=== PATIENT | female | born 1995 | race Caucasian/White ===

== ENCOUNTER 2019-08-30 10:37 | Emergency (ER) | payer BC, MEDICAID, SELFPAY ==
--- NOTE | ~2019-08-30 | XR_ITS ---
EXAMINATION: XR chest 2V DATE: 08/30/2019 11:09 INDICATION: Cough. Chest congestion. Chest tightness. TECHNIQUE: Frontal and lateral views of the chest were obtained. COMPARISON: Chest 2 views 04/25/2015 FINDINGS: The chest demonstrates clear lungs without pneumonia, pleural effusion, or pneumothorax. Th e heart size is normal. IMPRESSION: 1. No acute cardiopulmonary disease. Reviewed, dictated and finalized at location A.
[2019-08-30 10:45] VITALS: BP 118/69; PULSE 85; RESP 18; TEMP 36.7; O2SAT 99
--- NOTE | 2019-08-30 10:56 | ED.GENADULT ---
HPI - General Adult General Chief complaint: Upper Respiratory Infection Stated complaint: chest congestion/sinus congestion/headache Time Seen by Provider: 08/30/19 10:56 Source: patient and RN notes reviewed Mode of arrival: ambulatory Limitations: no limitations History of Present Illness HPI narrative: 24-year-old female presents with complains of bilateral otalgia, dry cough with intermittent headaches (not the worst of her life, none now) for the past 6-7 days. Sumatriptan, Ibuprofen (last 1 day ago) and Tylenol (last 2 days ago) with some relief. Symptoms increased over the past 3 days with chest wall tenderness with coughing. Dry cough worse when lying down. History of Asthma and Bronchitis. Denies chest congestion. Rhinorrhea and nasal congestion. Denies sore throat. No high fevers, drooling, neck or throat swelling. No cardiac chest pain, wheezing, or shortness of breath. No exacerbation factors. Denies diarrhea, nausea, vomiting, and abdominal pain. Tolerating liquids well. Laquita and mother denies being , LMP 08/22/19. Both denies weakness, fatigue, myalgia. Denies recent traveling. Denies concern for COVID-19 or exposures been home since [id number] order except for essential household (groceries delivered to home) needs and return home. Some parts of this dictation were generated by voice recognition software and may contain typographical and/or grammatical inaccuracies. Related Data Home Medications Medication Instructions Recorded Confirmed ethosuximide 250 mg PO BID 04/29/19 08/30/19 methsuximide [Celontin] 300 mg PO TID 04/29/19 08/30/19 prazosin 1 mg PO HS 04/29/19 08/30/19 sertraline 50 mg PO DAILY 04/29/19 08/30/19 sumatriptan succinate 50 mg PO USEASDIRECTD PRN 04/29/19 08/30/19 albuterol sulfate 2 puff INHALATION QID PRN 08/30/19 08/30/19 ergocalciferol (vitamin D2) 1,250 mcg PO WEEKLY 08/30/19 08/30/19 [Vitamin D2] folic acid 0.4 mg PO DAILY 08/30/19 08/30/19 Allergies Allergy/AdvReac Type Severity Reaction Status Date / Time No Known Allergies Allergy Unknown Verified 08/30/19 10:57 Review of Systems Review of Systems: Narrative: CONSTITUTIONAL: Denies fever, chills, sweats. EYES: Denies visual changes, redness, discharge. ENT: Complains of otalgia rhinorrhea, congestion, Denies sore throat. CARDIOVASCULAR: Denies chest pain, palpitations, edema. RESPIRATORY: Denies dyspnea, wheezing. Complains of dry cough. GASTROINTESTINAL: Denies abdominal pain, nausea, vomiting, diarrhea. GENITOURINARY: Denies dysuria, hematuria, abnormal discharge. SKIN: Denies rash or itching. MUSCULOSKELETAL: Denies acute back pain, joint pain, or myalgia. Complains of intermittent diffused chest wall pain. NEUROLOGIC: Denies numbness or focal weakness. Complains of intermittent ORTEZ. PSYCHIATRIC: Denies anxiety or depression. All systems reviewed & are unremarkable except as noted in HPI and below. [facility] Past Medical History Medical History (Updated 08/30/19 @ 11:48 by GALEN Manzanares) Anxiety Asthma Depression Hx of migraines Learning disabilities Psoriasis Right arm fracture Seizures Surgical History Surgical History (Updated 08/30/19 @ 11:16 by GALEN Manzanares) History of facial surgery plastic surgery to chin Family History Family History (Updated 08/30/19 @ 11:18 by GALEN Manzanares) Father Seizures Mother Alive and well Sibling Seizures Asthma Grandparent Asthma Social History Social History (Updated 08/30/19 @ 11:18 by GALEN Manzanares) Smoking status: Never smoker Second hand tobacco smoke exposure: No Alcohol intake: never Substance use: never Living arrangements: with family Occupation/Education: unemployed Additional occupation/education comments: Disable Gender identity (if verbalized by the patient): Female Comments At time of signature, agree with nurse past medical, surgical, social, and family
== END 2019-08-30 11:35 | disposition home or self-care (01) ==
PROVIDERS: Emergency Provider Nurse Practitioner Family; PCP Emergency Medicine
DX: M94.0 Chondrocostal junction syndrome [Tietze] (principal); J06.9 Acute upper respiratory infection, unspecified; F41.9 Anxiety disorder, unspecified; F32.9 Major depressive disorder, single episode, unspecified; J45.909 Unspecified asthma, uncomplicated
CPT/HCPCS: 71046; 99213; G0463

== ENCOUNTER 2019-09-30 08:46 | Outpatient (CLI) | payer BC, MEDICAID, SELFPAY ==
--- NOTE | ~2019-09-30 | XR_ITS ---
EXAMINATION: XR UGIAC wo kub DATE: 09/30/2019 09:37 INDICATION: Abdominal pain TECHNIQUE: Thick barium contrast with gas effervescent crystals were administered orally. Fluoroscop ic images of the esophagus, stomach, and proximal duodenum were obtained in various projections. The reafter, overhead images of the abdomen were performed. 1.1 minutes of fluroscopy. DAP 8.6. 41 images . FINDINGS: The esophagus is normal in caliber, without mucosal lesions or strictures. There is normal esophagea l peristalsis. There is no hiatal hernia. No gastroesophageal reflux witnessed during the course of the study. The gastric folds are normal. The proximal duodenum is also normal in appearance. IMPRESSION: 1. Normal upper GI study. Reviewed, dictated and finalized at location A. IMPRESSION: 1. Normal upper GI study.
--- NOTE | ~2019-09-30 | US_ITS ---
US abdomen complete EXAMINATION: US Abdomen Complete INDICATION: Abdomen pain PROCEDURE: Realtime High Resolution abdomen ultrasound. COMPARISON: No prior studies for comparison FINDINGS: Gallbladder within normal limits. No gallstones, pericholecystic fluid, gallbladder wall t hickening or biliary dilatation. Common bile duct measures 3 mm. Liver echotexture within normal limits without focal mass. Pancreas within normal limits. Pancreati c tail is obscured by bowel gas. Spleen is unremarkeable. Renal echotexture is within normal limits bilaterally without hydronephrosis, contour deforming mass or renal stone. Right kidney measures 10.8 cm. Left kidney measures 10.9 cm. Visualized aspects of the aorta and IVC are within normal limits. Portal vein is patent. No sonograph ic Godfrey's sign indicated by the technologist. IMPRESSION: 1: Normal abdominal ultrasound. Reviewed, dictated and finalized at location A.
== END 2019-09-30 08:47 | disposition home or self-care (01) ==
PROVIDERS: PCP Emergency Medicine; Visit Provider Emergency Medicine
DX: R10.9 Unspecified abdominal pain (principal)
CPT/HCPCS: 74246; 76700

== ENCOUNTER 2019-11-05 09:07 | Outpatient (CLI) | payer BC, MEDICAID, SELFPAY ==
--- NOTE | 2019-11-05 09:30 | NEURO_ITS ---
TEST: ELECTROENCEPHALOGRAM DIAGNOSIS: SEIZURES PATIENT NUMBER: [id number] EEG NUMBER: [id number] RECORDING DATE: 11/05/19 CLINICAL HISTORY: Patient reports she has had seizure all her life but has been seizure free for the last several years and wants to discontinue seizure medication. CONDITION OF RECORDING: Awake, drowsy and sleep EEG DESCRIPTION: Basic resting occipital frequency consists of moderate amount of poorly organized low voltage 9-11hz alpha mixed with intermittent low to medium voltage 6-7hz theta. During drowsiness low voltage beta activity is seen diffusely mixed with waxing and waning posterior alpha rhythms and intermittent theta activity. Bilateral symmetrical sleep activity is seen during sleep. Photic stimulation produced normal drive. Hyperventilation produced normal and symmetrical build-up. Nonparoxysmal. Nonfocal. Nonlateralizing. IMPRESSION: No significant abnormalities noted. MTDD
== END 2019-11-05 09:08 | disposition home or self-care (01) ==
PROVIDERS: PCP Emergency Medicine; Visit Provider Psychiatry & Neurology Neurology
DX: R56.9 Unspecified convulsions (principal)
CPT/HCPCS: 95816

== ENCOUNTER 2020-01-19 02:36 | Outpatient (CLI) | payer BC, MEDICAID, SELFPAY ==
[2020-01-19 18:24] LABS: SARS-CoV-2 RNA PCR Negative
== END 2020-01-19 02:37 | disposition home or self-care (01) ==
LOC: ANHCOVIDDT 02:36
PROVIDERS: PCP Emergency Medicine; Visit Provider Internal Medicine Gastroenterology
DX: Z01.812 Encounter for preprocedural laboratory examination (principal); Z20.828 Contact with and (suspected) exposure to other viral communicable diseases
CPT/HCPCS: 87635; C9803; U0003

== ENCOUNTER 2020-01-21 00:43 | Day surgery (SDC) | payer BC, MEDICAID, SELFPAY ==
[2020-01-13 13:07] VITALS: BMI 22.0
[2020-01-21 07:56] VITALS: BP 122/80; PULSE 97; RESP 20; TEMP 36.1; O2SAT 99
[2020-01-21] MEDS: LACTATED RINGERS 1,000 ML 150 ML IV CONT (08:04)
--- NOTE | 2020-01-21 08:35 | PM.HPGS ---
History of Present Illness History of Present Illness Consent: Risks, benefits, and alternatives have been discussed and questions answered. Patient agrees to proceed with procedure. Chief complaint: Nausea/ Change In Bowel Habits Narrative: Laquita Wells is a 24 year old female who has been suffering from epigastric pain for that for over a year. She has pain after she eats in the epigastric area and then later in the lower abdomen. Seems that the pain never leaves lately. She has had no weight loss. She gets nauseated with occasional vomiting. Also she has had a change in bowel movements. She has loose stools and urgent bowel movements immediately after eating PMFSH Past Medical History Medical History Anxiety Asthma Depression Hx of migraines Learning disabilities Psoriasis Right arm fracture Seizures Surgical History Surgical History (Updated 08/30/19 @ 11:16 by GALEN Manzanares) History of facial surgery plastic surgery to chin Family History Family History Father Seizures Mother Alive and well Sibling Seizures Asthma Grandparent Asthma Social History Social History Smoking status: Never smoker Second hand tobacco smoke exposure: No Alcohol intake: never Substance use: never Living arrangements: with family Additional occupation/education comments: Disable Gender identity (if verbalized by the patient): Female Meds Home Medications and Allergies Home Medications Medication Instructions Recorded Confirmed Type ethosuximide 250 mg PO BID 04/29/19 01/13/20 History methsuximide [Celontin] 300 mg PO TID 04/29/19 01/13/20 History prazosin 1 mg PO HS 04/29/19 01/13/20 History sertraline 50 mg PO DAILY 04/29/19 01/13/20 History sumatriptan succinate 50 mg PO USEASDIRECTD PRN 04/29/19 01/13/20 History albuterol sulfate 2 puff INHALATION QID PRN 08/30/19 01/13/20 History ergocalciferol (vitamin D2) 1,250 mcg PO WEEKLY 08/30/19 01/13/20 History [Vitamin D2] loratadine [Claritin] 10 mg PO DAILY 30 Days #30 tablet 08/30/19 01/13/20 Rx Allergies Allergy/AdvReac Type Severity Reaction Status Date / Time No Known Allergies Allergy Unknown Verified 01/21/20 07:55 Vital Signs Vital Signs - 24 hr 01/21/20 07:56 Temperature 36.1 C L Pulse Rate 97 Respiratory Rate 20 Blood Pressure 122/80 Pulse Oximetry 99 Exam Const: General: alert Orientation/consciousness: patient oriented x3 Resp: Auscultation: clear to auscultation bilaterally Cardio: Rhythm: regular rhythm GI: GI Palp: Yes Soft to palpation and No Tenderness to palpation present (GI) Neuro: General: patient oriented x3 Assessment and Plan Assessment and plan (1) Epigastric pain: Code(s): R10.13 - Epigastric pain Status: Acute Assessment and Plan: EGD with possible biopsy or dilatation or cautery. (2) Change in bowel habits: Code(s): R19.4 - Change in bowel habit Status: Acute Assessment and Plan: Colonoscopy with possible biopsy or polypectomy or cautery or injection of substances.
--- NOTE | 2020-01-21 08:52 | WPDANESEPPF ---
Anes - Initial Pre Proc Eval Procedure: Operation Date: 01/21/20 09:00 Proposed Procedures p Esophagogastroduodenoscopy & Colonoscopy - Khai Redd MD Date/Time: 01/21/20 08:52 Surgeon: Khai Redd MD Pre Op Diagnosis: Nausea/ Change In Bowel Habits Patient Data Age: 24 Gender: F Height: 5 ft 5 in Weight: 59.5 kg Last Vital Signs Temp 96.9 F L 01/21/20 07:56 Pulse 97 01/21/20 07:56 Resp 20 01/21/20 07:56 BP 122/80 01/21/20 07:56 Pulse Ox 99 01/21/20 07:56 Allergies Allergy/AdvReac Type Severity Reaction Status Date / Time No Known Allergies Allergy Unknown Verified 01/21/20 07:55 Home Medications Medication Instructions Recorded Confirmed Type ethosuximide 250 mg PO BID 04/29/19 01/13/20 History methsuximide [Celontin] 300 mg PO TID 04/29/19 01/13/20 History prazosin 1 mg PO HS 04/29/19 01/13/20 History sertraline 50 mg PO DAILY 04/29/19 01/13/20 History sumatriptan succinate 50 mg PO USEASDIRECTD PRN 04/29/19 01/13/20 History albuterol sulfate 2 puff INHALATION QID PRN 08/30/19 01/13/20 History ergocalciferol (vitamin D2) 1,250 mcg PO WEEKLY 08/30/19 01/13/20 History [Vitamin D2] loratadine [Claritin] 10 mg PO DAILY 30 Days #30 tablet 08/30/19 01/13/20 Rx Patient hx anesthesia problems: none Family hx anesthesia problems: none PMFSH Past Medical History Medical History Anxiety Asthma Depression Hx of migraines Learning disabilities Psoriasis Right arm fracture Seizures Surgical History Surgical History (Updated 08/30/19 @ 11:16 by GALEN Manzanares) History of facial surgery plastic surgery to chin Family History Family History Father Seizures Mother Alive and well Sibling Seizures Asthma Grandparent Asthma Social History Social History Smoking status: Never smoker Second hand tobacco smoke exposure: No Alcohol intake: never Substance use: never Living arrangements: with family Additional occupation/education comments: Disable Gender identity (if verbalized by the patient): Female Anes - Eval Final PreProcedure Day of Procedure 01/21/20 08:52 Patient weight: normal Heart: regular rate and rhythm Lungs: clear to auscultation Airway: Mallampati scale class II Neurological: alert and oriented Last oral intake: >/= 8 hours ASA classification: II Emergent: no Anesthetic plan: proceed Anesthesia type and monitoring: general GIVS and standard monitoring Informed Consent: The patient's anesthetic plan and its attendant risks and benefits were discussed with the patient/family/POA. Questions were solicited and answers provided to the satisfaction of the patient/family/POA.
[2020-01-21 09:46] VITALS: BP 102/68; PULSE 84; RESP 30; O2SAT 100
[2020-01-21 09:56] VITALS: BP 107/70; PULSE 83; RESP 29; O2SAT 100
[2020-01-21 10:06] VITALS: BP 126/90; PULSE 83; RESP 27; O2SAT 100
== END 2020-01-21 10:20 | disposition home or self-care (01) ==
PROVIDERS: PCP Emergency Medicine; Visit Provider Internal Medicine Gastroenterology
PROC: 0DJ08ZZ Inspection of Upper Intestinal Tract, Via Natural or Artificial Opening Endoscopic (ICD-10-PCS; CPT 43235; principal; 2020-01-21 09:00)
DX: R19.7 Diarrhea, unspecified (principal); K29.50 Unspecified chronic gastritis without bleeding; G40.909 Epilepsy, unspecified, not intractable, without status epilepticus; F41.8 Other specified anxiety disorders; F89 Unspecified disorder of psychological development
CPT/HCPCS: 43239; 45378; 87081; 88305; J2704; J7120

== ENCOUNTER 2020-02-10 12:06 | Outpatient (NON) | payer BC, MEDICAID, SELFPAY ==
[2020-02-10 21:43] LABS: SARS-CoV-2 RNA PCR Negative
== END 2020-02-10 12:07 ==
LOC: ANHCOVIDDT 12:08
PROVIDERS: PCP Emergency Medicine; Visit Provider Emergency Medicine
DX: Z20.828 Contact with and (suspected) exposure to other viral communicable diseases (principal); B34.9 Viral infection, unspecified
CPT/HCPCS: 87635; C9803; U0003

== ENCOUNTER 2020-08-15 07:27 | Outpatient (CLI) | payer BC, MEDICAID, SELFPAY ==
--- NOTE | ~2020-08-15 | NM_ITS ---
EXAMINATION: NM hepatobiliary wo pharm DATE: 08/15/2020 11:28 INDICATION: Abdominal pain. COMPARISON: Ultrasound 09/30/2019 TECHNIQUE: 5.1 mCi Tc-99m mebrofenin (Choletec) was administered intravenously. Scintigraphic images of the abdomen were obtained for one hour. Then, the patient drank 8 oz Ensure, and imaging was cont inued for 60 minutes. FINDINGS: There is normal clearance of radiotracer from the blood pool. There is homogeneous tracer u ptake by the liver. Activity progresses to the bowel and gallbladder. Gallbladder ejection fraction (GBEF) was 76%. Note that with this technique, normal GBEF >= 33%. IMPRESSION: 1. Normal hepatobiliary scintigraphy. Reviewed, dictated and finalized at location A.
== END 2020-08-15 07:28 | disposition home or self-care (01) ==
PROVIDERS: PCP Emergency Medicine; Visit Provider Emergency Medicine
DX: R10.9 Unspecified abdominal pain (principal)
CPT/HCPCS: 78226; A9537

== ENCOUNTER 2020-08-16 10:06 | Emergency (ER) | payer BC, MEDICAID, SELFPAY ==
--- NOTE | ~2020-08-16 | XR_ITS ---
XR foot LT min 3V 08/16/2020 10:28 INDICATION: Left foot pain after trauma PROCEDURE: 4 views left foot COMPARISON: No prior studies for comparison. FINDINGS: Fracture, dislocation or subluxation is not identified. Lisfranc joint is intact. The soft tissues appear within normal limits. No foreign bodies are identified. IMPRESSION: 1: NO ACUTE BONE OR JOINT ABNORMALITY IDENTIFIED. Reviewed, dictated and finalized at location B.
[2020-08-16 10:14] VITALS: BP 121/83; PULSE 79; RESP 16; TEMP 36.9; O2SAT 99
--- NOTE | 2020-08-16 10:33 | ED.LOWEXIN ---
HPI - Extremity Injury (Lower) General Chief Complaint: Extremity Injury, Lower Stated Complaint: INJURED L FOOT Source: patient and RN notes reviewed Limitations: no limitations History of Present Illness HPI Narrative: The patient, on a couple meds and psychologically delayed, presents with foot pain. Patient states today she dropped a piece of wood on her foot. She complains of mild pain and edema at the medial MTPJ, is worse with motion, better at rest. No bleeding, deformity. Related Data Home Medications Medication Instructions Recorded Confirmed Celontin 300 mg PO TID 04/29/19 01/13/20 ethosuximide 250 mg PO BID 04/29/19 01/13/20 prazosin 1 mg PO HS 04/29/19 01/13/20 sertraline 50 mg PO DAILY 04/29/19 01/13/20 sumatriptan succinate 50 mg PO USEASDIRECTD PRN 04/29/19 01/13/20 ergocalciferol (vitamin D2) 1,250 mcg PO WEEKLY 08/30/19 01/13/20 [Vitamin D2] Allergies Allergy/AdvReac Type Severity Reaction Status Date / Time No Known Allergies Allergy Unknown Verified 01/21/20 07:55 Review of Systems Review of Systems: Narrative: General/Constitutional: No weight loss,fever Eyes: N0: Redness,discharge Ears/Nose/Throat: No: Epistaxis,ear discharge Respiratory: Denies: Hemoptysis Gastrointestinal: No Vomiting, Bleeding-rectal Skin: No Lumps, eruption Neurologic: No Focal Weakness,Sz Hematologic: Denies: Petechiae/Purpura Psychiatric: No: Suicida ideationl All Other Systems: Reviewed and Negative [facility] Past Medical History Medical History (Updated 08/16/20 @ 10:36 by Ramsey Walker MD) Anxiety Asthma Depression Hx of migraines Learning disabilities Psoriasis Right arm fracture Seizures Surgical History Surgical History (Updated 08/30/19 @ 11:16 by GALEN Manzanares) History of facial surgery plastic surgery to chin Family History Family History Father Seizures Mother Alive and well Sibling Seizures Asthma Grandparent Asthma Social History Social History Smoking status: Never smoker Second hand tobacco smoke exposure: No Alcohol intake: never Substance use: never Additional occupation/education comments: Disable Gender identity (if verbalized by the patient): Female Comments At time of signature, agree with nursing past medical, surgical, social and family history. There is no relevant family history pertinent to the presenting complaint Exam Narrative: Exam Narrative: General Appearance: Well appearing, Well nourished, No distress EYE: PERRLA, EOMI, Conjunctiva clear Ears: External ear normal, Auditory canal normal Nose: Normal nose, Nares clear Mouth/Throat: Normal appearing, Normal lips Neck: Supple Respiratory: Airway patent, No respiratory distress MS-foot: Normal strength (mostly intact, limited flexion/extension by pain), Tenderness (medially, with mild decreased ROM), Scant swelling (yearly, Other (no anterior drawer, no collateral laxity, no Achilles tenderness, no fifth MT tenderness) Skin: Tender slightly bruised first MTP J otherwise skin warm, Dry, Normal color Neurological: A&O x3, Speech clear, CN II-XII intact Psychiatric: Normal mood, Normal affect Course Course Emergency Course: Films visualized, interpreted by radiologist, agree, normal see report Vital Signs Vital signs: Vital Signs Temperature 98.5 F 08/16/20 10:14 Pulse Rate 79 08/16/20 10:14 Respiratory Rate 16 08/16/20 10:14 Blood Pressure 121/83 08/16/20 10:14 Pulse Oximetry 99 08/16/20 10:14 Temperature 98.5 F 08/16/20 10:14 Pulse Rate 79 08/16/20 10:14 Respiratory Rate 16 08/16/20 10:14 Blood Pressure 121/83 08/16/20 10:14 Pulse Oximetry 99 08/16/20 10:14 Discharge Plan Discharge Clinical Impression: Contusion of foot, left Qualifiers: Encounter type: initial encounter Qualified Code(s): S90.32XA -
== END 2020-08-16 10:41 | disposition home or self-care (01) ==
PROVIDERS: Emergency Provider Emergency Medicine; PCP Emergency Medicine
DX: S90.32XA Contusion of left foot, initial encounter (principal); W20.8XXA Other cause of strike by thrown, projected or falling object, initial encounter; F41.9 Anxiety disorder, unspecified; F32.9 Major depressive disorder, single episode, unspecified; J45.909 Unspecified asthma, uncomplicated; G40.909 Epilepsy, unspecified, not intractable, without status epilepticus
CPT/HCPCS: 73630; 99213; G0463

== ENCOUNTER 2020-08-21 06:42 | Outpatient (CLI) | payer BC, MEDICAID, SELFPAY ==
--- NOTE | ~2020-08-21 | NM_ITS ---
EXAM: NM gastric emptying study DATE: 08/21/2020 11:45 CDT INDICATION: Nish pain TECHNIQUE: A gastric emptying study was performed using the methodology of Kimber ORTEZ, et al. J Nucl Med 2007; 48:568-572. The patient was given a meal consisting of 2 scrambled eggs labeled with 1 mCi Tc-99m sulfur colloid, 2 slices of toast, two packages of jam, and approximately 120 mL of water. Si multaneous anterior and posterior 1-min images of the abdomen were obtained with the patient supine a t multiple time points over a total period of 4 hours. The geometric mean of anterior and posterior v iews was determined, and the percentage retention was calculated for each time point. COMPARISON: Ultrasound and upper GI studies dated 09/30/2019. FINDINGS: Gastric retention of the radiotracer-labeled meal was 56%, 21%, and 9% at the 1-hour, 2-ho ur, and 4-hour time points, respectively. With this technique, apparent rapid gastric emptying is sug gested by <30% gastric retention at 1 hour. Delayed gastric emptying is defined by gastric retention of >90% at 1 hour, >60% retention at 2 hours, or >10% retention at 4 hours. IMPRESSION: 1. Normal gastric emptying. Reviewed, dictated and finalized at location A. IMPRESSION: 1. Normal gastric emptying.
== END 2020-08-21 06:43 | disposition home or self-care (01) ==
PROVIDERS: PCP Emergency Medicine; Visit Provider Emergency Medicine
DX: R10.9 Unspecified abdominal pain (principal)
CPT/HCPCS: 78264; A9541

== ENCOUNTER → 2020-12-12 02:45 | Outpatient (CLI) | payer BC, MEDICAID, SELFPAY ==
[2020-12-12 19:41] LABS: SARS-CoV-2 RNA PCR Negative
== END ==
PROVIDERS: PCP Emergency Medicine; Visit Provider Emergency Medicine
DX: R68.89 Other general symptoms and signs (principal); Z20.822 Contact with and (suspected) exposure to COVID-19
CPT/HCPCS: C9803; U0003; U0005

== ENCOUNTER 2021-08-13 21:36 | Emergency (ER) | payer BC, MEDICAID, SELFPAY ==
--- NOTE | ~2021-08-13 | CT_ITS ---
EXAMINATION: CT brain wo con INDICATION: Altered mental status COMPARISON: 02/13/2018 TECHNIQUE: Standard unenhanced head CT. The dose-length product (DLP) was 529.67 mGy-cm. The mA was a djusted according to patient size. Iterative reconstruction technique was employed. FINDINGS: There is no intracranial hemorrhage, acute infarction, or abnormal mass lesion. The ventric les are normal. There is no abnormal mass effect or midline shift. The zuñiga-white matter differentiat ion is normal. The basal cisterns are patent. The orbits are normal. The paranasal sinuses, mastoids and calvarium are normal. IMPRESSION: 1. No acute intracranial abnormality. Reviewed, dictated and finalized at location F.
--- NOTE | ~2021-08-13 | XR_ITS ---
EXAMINATION: XR chest 1V portable INDICATION: Chest pain TECHNIQUE: Portable AP chest at 2209 hours COMPARISON: 08/30/2019 FINDINGS: The lungs are free of acute opacities. There is no pleural effusion or pneumothorax. The ca rdiomediastinal silhouette is normal. IMPRESSION: 1. No acute cardiopulmonary abnormality. Reviewed, dictated and finalized at location F.
[2021-08-13 21:40] VITALS: BP 145/102; PULSE 125; RESP 16; TEMP 37.4; O2SAT 100
--- NOTE | 2021-08-13 21:46 | ECG_ITS ---
Measurements Intervals [place] Rate: 116 P: 66 WA: 148 QRS: 44 QRSD: 106 T: -5 QT: 341 QTc: 476 Interpretive Statements SINUS TACHYCARDIA POSSIBLE LEFT ATRIAL ENLARGEMENT [-0.1mV P WAVE IN V1/V2] NONSPECIFIC T-WAVE ABNORMALITY ABNORMAL RHYTHM ECG NO PREVIOUS ECG AVAILABLE FOR COMPARISON Electronically Signed On 08-15-2021 13:20:24 CDT by Denise Martinez M.D.
[2021-08-13 22:01] VITALS: PULSE 112
[2021-08-13 22:12] LABS: Basophils Percent Auto 0.4 % (0.2-1.2); Eosinophils Absolute Auto 0.1 K/mm3 (0-0.3); Hematocrit 36.7 % (37.0-47.0); Hemoglobin 12.5 g/dL (12.0-15.0); Immature Granulocyte Absolute 0.01 K/mm3 (0.00-0.031); Immature Granulocyte Percent A 0.2 % (0-0.5); Lymphocytes Absolute Auto 0.43 K/mm3 (0.9-3.2); Lymphocytes Percent Auto 8.7 % (18.3-44.2); Mean Corpuscular HGB Conc 34.1 g/dl (32-36); Mean Corpuscular Hemoglobin 30.9 pg (26-34); Mean Corpuscular Volume 90.8 fl (80-100); Mean Platelet Volume 9.6 fl (7.4-10.4); Monocytes Absolute Auto 0.5 K/mm3 (0.1-0.6); Monocytes Percent Auto 9.9 % (2.6-8.5); Neutrophils Percent Auto 79.8 % (45.5-73.1); Platelet Count Result 165 k/mm3 (150-375); Red Blood Count 4.04 M/mm3 (4.2-5.4); Red Cell Distribution Width 12.2 % (11.5-14.5)
[2021-08-13 22:21] LABS: Alanine Aminotransferase 14 U/L (4-35); Albumin Level 4.4 g/dL (3.5-5.1); Alkaline Phosphatase 117 U/L (38-126); Anion Gap 10 mmol/L (8-16); Aspartate Amino Transferase 24 U/L (14-36); Bilirubin,Total 0.1 mg/dL (0.2-1.3); Blood Urea Nitrogen 7 mg/dL (7-17); Calcium 8.5 mg/dL (8.4-10.2); Carbon Dioxide 24 mmol/L (22-30); Chloride 101 mmol/L (98-107); Estimated CRCL calculation 95 ml/min; Estimated Glomerular Filt Rate > 60; Glucose 105 mg/dL (65-110); Lipase 65 U/L (23-300); Potassium 3.3 mmol/L (3.4-5.0); Sodium 135 mmol/L (137-145)
[2021-08-13 22:22] LABS: Prothrombin Time 13.2 Seconds (11.1-14.7)
--- NOTE | 2021-08-13 22:27 | ED.GENADULT ---
HPI - General Adult General Chief complaint: Unspecified Stated complaint: Fatigue Time Seen by Provider: 08/13/21 22:15 Source: family Mode of arrival: ambulatory Limitations: clinical condition History of Present Illness HPI narrative: Mother states patient was complaining of cold and sinus type symptoms yesterday but today has basically slept all day and has been very weak and difficult to arouse. Mother states not running fever and no UTI symptoms. Pt has had ORTEZ and sore throat. Pt als complained to mother earlier about tightness in her chest and mother checked BP and it was elevated. Mpther states she told her she took nyquil. Related Data Home Medications Medication Instructions Recorded Confirmed Celontin 300 mg PO TID 04/29/19 01/13/20 ethosuximide 250 mg PO BID 04/29/19 01/13/20 sumatriptan succinate 50 mg PO USEASDIRECTD PRN 04/29/19 01/13/20 ergocalciferol (vitamin D2) 1,250 mcg PO WEEKLY 08/30/19 01/13/20 [Vitamin D2] Allergies Allergy/AdvReac Type Severity Reaction Status Date / Time latex Allergy Rash Verified 08/13/21 21:37 Review of Systems Review of Systems: All systems reviewed & are unremarkable except as noted in HPI and below PMFSH Past Medical History Medical History (Updated 08/14/21 @ 01:13 by Chris Arnold III, DO) Anxiety Asthma Depression Hx of migraines Learning disabilities Psoriasis Right arm fracture Seizures Surgical History Surgical History History of facial surgery plastic surgery to chin Family History Family History Father Seizures Mother Alive and well Sibling Seizures Asthma Grandparent Asthma Social History Social History (Updated 11/20/20 @ 14:24 by Bernice Gonzalez MA) Smoking status: Never smoker Second hand tobacco smoke exposure: No Alcohol intake: never Substance use: never Additional occupation/education comments: Disable Gender identity (if verbalized by the patient): Female Sexual Orientation (if Verbalized by the Patient): unknown Spiritual care concerns: No Agree to blood products: Yes Exam Const: General: tired appearing and other (very drowsy, will answer questions appropriately when roused) Nutritional Appearance: thin Orientation/consciousness: patient oriented x3 Limitations: altered mental status HENMT: Head: normal to inspection Mouth: Yes dry mucous membranes Throat: posterior oropharynx abnormal (mild erythema no exudate) Eyes: General: appearance normal, both eyes and all related structures Neck: Neck: normal visual inspection, full ROM, no lymphadenopathy and supple Chest: Chest palpation & inspection: normal inspection of the chest Resp: Effort & Inspection: normal respiratory effort and able to speak in complete sentences Auscultation: clear to auscultation bilaterally Cardio: Rate: tachycardic Rhythm: regular rhythm Peripheral pulses: Peripheral pulses 2+ throughout GI: Inspection: normal to inspection GI Palp: Yes Soft to palpation Auscultation: normal bowel sounds Skin: General skin exam: normal color Neuro: General: patient oriented x3 and other (extremely drowsy) Cognition (Neuro): normal cognition Speech: aphasia Extrem: General: normal to inspection and no clubbing, cyanosis or edema Course Vital Signs Vital signs: Vital Signs Temperature 99.3 F 08/13/21 21:40 Pulse Rate 125 H 08/13/21 21:40 Respiratory Rate 16 08/13/21 21:40 Blood Pressure 145/102 H 08/13/21 21:40 Pulse Oximetry 100 08/13/21 21:40 Temperature 99.3 F 08/13/21 21:40 Pulse Rate 90 08/14/21 01:22 Respiratory Rate 18 08/14/21 01:22 Blood Pressure 138/90 08/14/21 01:22 Pulse Oximetry 100 08/14/21 01:22 Medical Decision Making Vital Signs Vital Signs: Vital Signs Temperature 99.3 F 08/13/21 21:40 Pulse Rate 125 H 08/13/21 21:40 Respirato
[2021-08-13 22:33] LABS: Troponin I < 0.012 ng/mL (0.000-0.034)
[2021-08-13] MEDS: SODIUM CHLORIDE 0.9% IV 1,000 ML 999 ML IV CONT (23:13)
[2021-08-13 23:55] VITALS: BP 140/82; PULSE 100; RESP 16; O2SAT 100
[2021-08-13 23:57] LABS: SARS-CoV-2 RNA PCR Negative
[2021-08-14] VITALS (10 sets, daily range): BP systolic 131–141; BP diastolic 90–99; PULSE 90–108; RESP 18–26; O2SAT 94–100
[2021-08-14 00:17] LABS: Monoscreen Negative (Negative); Negative Monotest Control Negative (Negative); Positive Monotest Control Positive (Positive)
[2021-08-14] MEDS: IBUPROFEN 400 MG TABLET 800 MG PO (00:25)
[2021-08-14] MEDS: HYDROcodone/acetaminophen (*CRX) 5-325 MG TABLET 1 TAB PO (01:14)
== END 2021-08-14 01:30 | disposition home or self-care (01) ==
PROVIDERS: Emergency Medicine; Emergency Provider Emergency Medicine; PCP Emergency Medicine
DX: B34.9 Viral infection, unspecified (principal); Z20.822 Contact with and (suspected) exposure to COVID-19
CPT/HCPCS: 36415; 70450; 71045; 80053; 83690; 84484; 85025; 85610; 85730; 86308; 87081; 87804; 87880; 93005; 96360; 99284; A9270; C9803; J7030; U0003; U0005

== ENCOUNTER 2022-02-13 08:25 | Emergency (ER) | payer BC, MEDICAID, SELFPAY ==
--- NOTE | ~2022-02-13 | XR_ITS ---
EXAMINATION: XR chest 2V DATE: 02/13/2022 08:53 INDICATION: Cough TECHNIQUE: frontal and lateral views of the chest were obtained. COMPARISON: Chest radiograph dated 08/13/2021 FINDINGS: The lungs remain clear with no focal airspace opacities, pulmonary edema, pleural effusion or pneumot horax. The cardiomediastinal silhouette is normal. Upper thoracic levocurvature. IMPRESSION: 1. No acute cardiopulmonary disease. Reviewed, dictated and finalized at location A.
--- NOTE | 2022-02-13 08:36 | ED.URI ---
HPI - URI/Sore Throat General Chief Complaint: Upper Respiratory Infection Stated Complaint: COUGH/RUNNY NOSE/CHEST PAIN Time Seen by Provider: 02/13/22 08:42 Source: patient and RN notes reviewed Mode of arrival: ambulatory Limitations: no limitations History of Present Illness HPI Narrative: 26-year-old female with a history of seizures and asthma presented for complaint of cough, sinus congestion and mid chest pain with deep inspiration and cough for 3 weeks. Cough is nonproductive. She has been taking [id number] medications for symptoms without relief. Denies requiring albuterol inhaler. Mother endorses at the onset sick contacts in the house, they were negative for covid; however the patient's symptoms have persisted. She denies shortness of breath, wheezing, nausea, vomiting, diarrhea, fevers or chills. Chest pain is not radiating, she denies associated palpitations or pain to the neck, jaw, back or shoulder. MD elicited complaint: cough Related Data Home Medications Medication Instructions Recorded Confirmed ethosuximide 250 mg capsule 250 mg PO BID 04/29/19 02/13/22 methsuximide 300 mg capsule 300 mg PO TID 04/29/19 02/13/22 (Celontin) sumatriptan succinate 50 mg tablet 50 mg PO USEASDIRECTD PRN headache 04/29/19 02/13/22 ergocalciferol (vitamin D2) 1,250 1,250 mcg PO WEEKLY 08/30/19 02/13/22 mcg (50,000 unit) capsule (Vitamin D2) duloxetine 40 mg capsule,delayed 40 mg PO DAILY 02/13/22 02/13/22 release folic acid 1 mg tablet 1 mg PO DAILY 02/13/22 02/13/22 norgestimate 0.25 mg-ethinyl 1 tablet PO DAILY 02/13/22 02/13/22 estradiol 35 mcg tablet (Estarylla) riboflavin (vitamin B2) 100 mg 400 mg PO DAILY 02/13/22 02/13/22 tablet (Vitamin B-2) rimegepant 75 mg disintegrating 75 mg PO DAILY 02/13/22 02/13/22 tablet (Nurtec ODT) Allergies Allergy/AdvReac Type Severity Reaction Status Date / Time latex Allergy Rash Verified 02/13/22 08:34 Review of Systems Review of Systems: CONSTITUTIONAL: Denies malaise, chills, sweats, fever EYES: Denies visual changes, redness, or discharge ENT: Reports rhinorrhea, congestion, denies sinus pain, otalgia, sore throat CARDIOVASCULAR: Denies chest pain, palpitations, edema RESPIRATORY: Reports cough, post nasal drainage. Denies dyspnea GASTROINTESTINAL: Denies abdominal pain, nausea, vomiting, diarrhea SKIN: Denies rash MUSCULOSKELETAL: denies myalgia NEUROLOGIC: Denies headache [facility] Past Medical History Medical History (Updated 02/13/22 @ 09:22 by Yvonne Feldman APRN) Anxiety Asthma Depression Hx of migraines Learning disabilities Psoriasis Right arm fracture Seizures Surgical History Surgical History History of facial surgery plastic surgery to chin Family History Family History Father Seizures Mother Alive and well Sibling Seizures Asthma Grandparent Asthma Social History Social History Smoking status: Never smoker Second hand tobacco smoke exposure: No Alcohol intake: never Substance use: never Additional occupation/education comments: Disable Gender identity (if verbalized by the patient): Female Sexual Orientation (if Verbalized by the Patient): unknown Spiritual care concerns: No Agree to blood products: Yes Exam Narrative: GENERAL: well-appearing EYES: PERRLA, conjunctivae clear ENT: Mucous membranes moist. TM pearly zuñiga with normal light reflex bilaterally; no tragal tenderness. Oropharynx erythematous without lesions or exudate, no drooling, no hoarse, no tripod positioning, muffled voice, soft palate or pharyngeal wall bulging NECK: Supple. No lymphadenopathy CHEST: Clear to auscultation, breath sounds equal. No wheezing, rhonchi, rales, or stridor. No respiratory distress, speaks in full sentences. HEART: Regular
[2022-02-13 08:38] VITALS: BP 137/85; PULSE 86; RESP 20; TEMP 36.5; O2SAT 100
== END 2022-02-13 09:27 | disposition home or self-care (01) ==
PROVIDERS: Emergency Provider Nurse Practitioner Family; PCP Emergency Medicine
DX: J06.9 Acute upper respiratory infection, unspecified (principal); L30.9 Dermatitis, unspecified; J45.909 Unspecified asthma, uncomplicated; G40.909 Epilepsy, unspecified, not intractable, without status epilepticus
CPT/HCPCS: 71046; 99213; G0463

== ENCOUNTER 2022-03-06 08:30 | Emergency (ER) | payer BC, MEDICAID, SELFPAY ==
--- NOTE | ~2022-03-06 | XR_ITS ---
EXAMINATION: XR hand LT min 3V DATE: 03/06/2022 09:00 INDICATION: Left hand pain at the third distal interphalangeal joint. TECHNIQUE: 3 views of left hand were obtained. COMPARISON: None. FINDINGS: Bone alignment is normal. No fracture. There is a 6 mm nonaggressive lytic lesion in lunate , which may be a subchondral cyst, intraosseous ganglion, or enchondroma. Joint spaces are normal. IMPRESSION: 1. No etiology for the patient's symptoms. Reviewed, dictated and finalized at location A. GER SOURCING
--- NOTE | 2022-03-06 08:43 | ED.UPPEXIN ---
HPI - Extremity Injury (Upper) General Chief Complaint: Extremity Problem,Nontraumatic Stated Complaint: lt wrist injury Time Seen by Provider: 03/06/22 08:43 Source: patient Mode of arrival: ambulatory Limitations: no limitations History of Present Illness HPI narrative: Laquita is a 26-year-old female patient presenting to clinic today with complaints of a left middle finger pain that is radiating pain into her wrist and arm. She reports she woke up with this pain this morning. No known injury. Related Data Home Medications Medication Instructions Recorded Confirmed ethosuximide 250 mg capsule 250 mg PO BID 04/29/19 02/13/22 methsuximide 300 mg capsule 300 mg PO TID 04/29/19 02/13/22 (Celontin) sumatriptan succinate 50 mg tablet 50 mg PO USEASDIRECTD PRN headache 04/29/19 02/13/22 ergocalciferol (vitamin D2) 1,250 1,250 mcg PO WEEKLY 08/30/19 02/13/22 mcg (50,000 unit) capsule (Vitamin D2) duloxetine 40 mg capsule,delayed 40 mg PO DAILY 02/13/22 02/13/22 release folic acid 1 mg tablet 1 mg PO DAILY 02/13/22 02/13/22 norgestimate 0.25 mg-ethinyl 1 tablet PO DAILY 02/13/22 02/13/22 estradiol 35 mcg tablet (Estarylla) riboflavin (vitamin B2) 100 mg 400 mg PO DAILY 02/13/22 02/13/22 tablet (Vitamin B-2) rimegepant 75 mg disintegrating 75 mg PO DAILY 02/13/22 02/13/22 tablet (Nurtec ODT) Allergies Allergy/AdvReac Type Severity Reaction Status Date / Time latex Allergy Rash Verified 03/06/22 08:59 Review of Systems Review of Systems: Pertinent positives per HPI. Patient denies any fever, chills, rash, headache, visual changes, dizziness, cough, runny nose, sore throat, shortness of breath, chest pain, palpitations, nausea, vomiting, diarrhea, constipation, abdominal pain, or any urinary issues. PMF Past Medical History Medical History (Updated 03/06/22 @ 09:11 by Rick Ndiaye, AJ) Anxiety Asthma Depression Hx of migraines Learning disabilities Psoriasis Right arm fracture Seizures Surgical History Surgical History History of facial surgery plastic surgery to chin Family History Family History Father Seizures Mother Alive and well Sibling Seizures Asthma Grandparent Asthma Social History Social History Smoking status: Never smoker Second hand tobacco smoke exposure: No Alcohol intake: never Substance use: never Additional occupation/education comments: Disable Gender identity (if verbalized by the patient): Female Sexual Orientation (if Verbalized by the Patient): unknown Spiritual care concerns: No Agree to blood products: Yes Comments At the time of my signature, I reviewed and agree with the nursing past medical, surgical, social, and family history. There is no relevant family history pertinent to the patient complaint. Exam Narrative: General: Well-developed, well nourished, in no apparent distress Head: Normocephalic, atraumatic. Cardio: Regular rate and rhythm, s1 and s2 normal, no murmur appreciated. Resp: Clear to auscultation bilaterally, no rhonchi, rales, wheezing or rubs. Musculoskeletal: No deformity, mild tender to palpation over the left 3rd PIP joint, grossly normal range of motion, muscle strength strong and equal, peripheral pulse strong, mild left hand edema when compared to right, no cyanosis, normal gait and station Course Course Emergency Course: Portions of this record may have been created with voice recognition software. Level of Care: Express Care Visit Vital Signs Vital signs: Vital Signs Temperature 36.6 C 03/06/22 08:49 Pulse Rate 80 03/06/22 08:49 Respiratory Rate 16 03/06/22 08:49 Blood Pressure 134/99 H 03/06/22 08:49 Pulse Oximetry 100 03/06/22 08:49 Oxygen Delivery Room Air 03/06/22 08:49
[2022-03-06 08:49] VITALS: BP 134/99; PULSE 80; RESP 16; TEMP 36.6; O2SAT 100
== END 2022-03-06 09:29 | disposition home or self-care (01) ==
PROVIDERS: Emergency Provider Nurse Practitioner Family; PCP Emergency Medicine
DX: M79.645 Pain in left finger(s) (principal); J45.909 Unspecified asthma, uncomplicated; G40.909 Epilepsy, unspecified, not intractable, without status epilepticus
CPT/HCPCS: 73130; 99213; G0463

== ENCOUNTER 2022-08-21 08:12 | Emergency (ER) | payer BC, MEDICAID, SELFPAY ==
[2022-08-21 08:24] VITALS: BP 118/87; PULSE 86; RESP 20; TEMP 36.4; O2SAT 100
--- NOTE | 2022-08-21 08:50 | ED.URI ---
HPI - URI/Sore Throat General Chief Complaint: Upper Respiratory Infection Stated Complaint: COUGH/CHEST PAIN/CONGESITON/HEADACHE Time Seen by Provider: 08/21/22 08:51 Source: patient, RN notes reviewed and old records reviewed Mode of arrival: ambulatory Limitations: no limitations History of Present Illness HPI Narrative: 27 year old female accompanied by mother presents to express care with complaints of 2 week duration of sinus congestion and drainage, cough frequent with some yellow phlegm and some chest soreness from coughing with no dyspnea noted. Patient has been taking Ibuprofen, sinus OTC medication and some Zyrtec, Patient denies any known fevers, chills, or sweats, no body aches. Patient reports no known ill exposure. Patient reports that she was treated 2 months ago for bronchitis. MD elicited complaint: cough, rhinorrhea and nasal congestion Onset (ago): week(s) (2) Treatments prior to arrival: ibuprofen and other (Zyrtec, OTC sinus medication) Related Data Home Medications Medication Instructions Recorded Confirmed ethosuximide 250 mg capsule 250 mg PO BID 04/29/19 08/21/22 methsuximide 300 mg capsule 300 mg PO TID 04/29/19 08/21/22 (Celontin) sumatriptan succinate 50 mg tablet 50 mg PO USEASDIRECTD PRN headache 04/29/19 08/21/22 ergocalciferol (vitamin D2) 1,250 1,250 mcg PO WEEKLY 08/30/19 08/21/22 mcg (50,000 unit) capsule (Vitamin D2) duloxetine 40 mg capsule,delayed 40 mg PO DAILY 02/13/22 08/21/22 release folic acid 1 mg tablet 1 mg PO DAILY 02/13/22 08/21/22 norgestimate 0.25 mg-ethinyl 1 tablet PO DAILY 02/13/22 08/21/22 estradiol 35 mcg tablet (Estarylla) riboflavin (vitamin B2) 100 mg 400 mg PO DAILY 02/13/22 08/21/22 tablet (Vitamin B-2) rimegepant 75 mg disintegrating 75 mg PO DAILY 02/13/22 08/21/22 tablet (Nurtec ODT) Allergies Allergy/AdvReac Type Severity Reaction Status Date / Time latex Allergy Rash Verified 08/21/22 08:41 Review of Systems Review of Systems: CONSTITUTIONAL: Denies malaise, chills, sweats, or fever. EYES: Denies visual changes, redness, or discharge. ENT: Reports rhinorrhea, congestion, sinus pain,no otalgia and no sore throat. CARDIOVASCULAR: Denies chest pain, palpitations, or edema. RESPIRATORY: Reports cough.? Denies dyspnea reports some chest soreness from cough. GASTROINTESTINAL: Denies abdominal pain, nausea, vomiting, diarrhea SKIN: Denies rash or itching. MUSCULOSKELETAL: Denies myalgia. NEUROLOGIC: Denies headache. All systems reviewed & are unremarkable except as noted in HPI and below PMFSH Past Medical History Medical History Anxiety Asthma Depression Hx of migraines Learning disabilities Psoriasis Right arm fracture Seizures Surgical History Surgical History History of facial surgery plastic surgery to chin Family History Family History Father Seizures Mother Alive and well Sibling Seizures Asthma Grandparent Asthma Social History Social History Smoking status: Never smoker Second hand tobacco smoke exposure: No Alcohol intake: never Substance use: never Living arrangements: with family Occupation/Education: occupation Additional occupation/education comments: Disable Gender identity (if verbalized by the patient): Female Sexual Orientation (if Verbalized by the Patient): unknown Spiritual care concerns: No Agree to blood products: Yes Comments At time of signature, agree with nursing past medical, surgical, social and family history. There is no relevant family history pertinent to the presenting complaint Exam Narrative: GENERAL: Well-appearing, well-nourished, and in no acute distress. HEAD: Normocephalic EYES: PERRLA, conjunctivae saurabh
== END 2022-08-21 09:10 | disposition home or self-care (01) ==
PROVIDERS: Emergency Provider Registered Nurse; PCP Emergency Medicine
DX: J01.40 Acute pansinusitis, unspecified (principal); R05.1 Acute cough; J45.909 Unspecified asthma, uncomplicated; L40.9 Psoriasis, unspecified; G40.909 Epilepsy, unspecified, not intractable, without status epilepticus
CPT/HCPCS: 99213; G0463

== ENCOUNTER 2022-09-04 12:37 | Emergency (ER) | payer BC, MEDICAID, SELFPAY ==
--- NOTE | ~2022-09-04 | XR_ITS ---
Clinical Indication: Chest pain PA and lateral views of the chest: Comparison: 02/13/2022 Findings: The lungs are clear, without evidence of focal consolidation or pleural effusion. Cardiome diastinal silhouette is within normal limits. Bones and soft tissues are unremarkable. Impression: Normal chest. Reviewed, dictated and finalized at location . Impression: Normal chest.
[2022-09-04 12:42] VITALS: BP 134/87; PULSE 93; RESP 20; TEMP 36.5; O2SAT 100
--- NOTE | 2022-09-04 12:47 | ED.URI ---
HPI - URI/Sore Throat General Chief Complaint: Upper Respiratory Infection Stated Complaint: CONGESTION/CHEST PAIN WITH BREATHING Time Seen by Provider: 09/04/22 12:52 Source: patient, RN notes reviewed and old records reviewed Mode of arrival: ambulatory Limitations: no limitations History of Present Illness HPI Narrative: 27 year old female accompanied by mother presents to express care with complaints of upper chest hurting when she breaths or coughs, nasal congestion and drainage which is green yellow in color, headache, her nose hurts, and she feels weak for the past 11/2 weeks. Patient states that her symptoms were better after completed the antibiotic for about three days and then they came back. Patient was started on oral antibiotic on the August. Patient states that she took Zyrtec, Ibuprofen and Nurtec yesterday for her symptoms but it didn't help so she hasn't taken anything today. Mother reports that patient started back on Flonase last night. Mother reports that she wants chest x-ray to check for pneumonia. Patient reports no known fevers, chills or sweats or body aches. MD elicited complaint: rhinorrhea, nasal congestion and other (upper chest discomfort with breathing or cough) Onset (ago): week(s) (patient reports 1.5 weeks ago) Able to tolerate fluids by mouth: Yes Treatments prior to arrival: other (Zyrtec, Ibuprofen, Nurtec, and Flonase yesterday no meds today) Related Data Home Medications Medication Instructions Recorded Confirmed ethosuximide 250 mg capsule 250 mg PO BID 04/29/19 09/04/22 methsuximide 300 mg capsule 300 mg PO TID 04/29/19 09/04/22 (Celontin) sumatriptan succinate 50 mg tablet 50 mg PO USEASDIRECTD PRN headache 04/29/19 09/04/22 ergocalciferol (vitamin D2) 1,250 1,250 mcg PO WEEKLY 08/30/19 09/04/22 mcg (50,000 unit) capsule (Vitamin D2) duloxetine 40 mg capsule,delayed 40 mg PO DAILY 02/13/22 09/04/22 release folic acid 1 mg tablet 1 mg PO DAILY 02/13/22 09/04/22 norgestimate 0.25 mg-ethinyl 1 tablet PO DAILY 02/13/22 09/04/22 estradiol 35 mcg tablet (Estarylla) riboflavin (vitamin B2) 100 mg 400 mg PO DAILY 02/13/22 09/04/22 tablet (Vitamin B-2) rimegepant 75 mg disintegrating 75 mg PO DAILY 02/13/22 09/04/22 tablet (Nurtec ODT) Allergies Allergy/AdvReac Type Severity Reaction Status Date / Time latex Allergy Rash Verified 09/04/22 12:48 Review of Systems Review of Systems: CONSTITUTIONAL: Denies malaise, chills, sweats, or fever, states some weakness EYES: Denies visual changes, redness, or discharge. ENT: Reports rhinorrhea, congestion, sinus pain, no otalgia, reports some sore throat with cough. CARDIOVASCULAR: Reports chest pain upper at times with breathing and cough, no palpitations, or edema. RESPIRATORY: Reports occasional cough.? Denies dyspnea. GASTROINTESTINAL: Denies abdominal pain, nausea, vomiting, diarrhea SKIN: Denies rash or itching. MUSCULOSKELETAL: Denies myalgia. NEUROLOGIC: Reports headache. All systems reviewed & are unremarkable except as noted in HPI and below PMFSH Past Medical History Medical History (Updated 09/04/22 @ 13:27 by Kristina Webb NP) Anxiety Asthma Depression Hx of migraines Learning disabilities Psoriasis Right arm fracture Seizures Surgical History Surgical History History of facial surgery plastic surgery to chin Family History Family History Father Seizures Mother Alive and well Sibling Seizures Asthma Grandparent Asthma Social History Social History Smoking status: Never smoker Second hand tobacco smoke exposure: No Alcohol intake: never Substance use: never Living arrangements: with family Occupation/Education: occupation Additional occupation/education comments: Disable Gender kemal
== END 2022-09-04 13:30 | disposition home or self-care (01) ==
PROVIDERS: Emergency Provider Registered Nurse; PCP Emergency Medicine
DX: J06.9 Acute upper respiratory infection, unspecified (principal); J30.9 Allergic rhinitis, unspecified; Z20.822 Contact with and (suspected) exposure to COVID-19; J45.909 Unspecified asthma, uncomplicated; L40.9 Psoriasis, unspecified
CPT/HCPCS: 71046; 87081; 87426; 87804; 87880; 99213; C9803; G0463

== ENCOUNTER 2022-11-01 14:05 | Emergency (ER) | payer BC, MEDICAID, SELFPAY ==
--- NOTE | ~2022-11-01 | XR_ITS ---
EXAMINATION: XR hand LT min 3V INDICATION: Left hand pain TECHNIQUE: Three views of the left hand are obtained. COMPARISON: 03/06/2022 FINDINGS: No fracture, dislocation, or subluxation. Again noted is a stable cystic area of the lunate , differential previously described. The joint spaces are normal. The soft tissues are unremarkable. IMPRESSION: 1. No acute osseous abnormality. Reviewed, dictated and finalized at location B.
[2022-11-01 14:12] VITALS: BP 118/87; PULSE 67; RESP 16; TEMP 36.1; O2SAT 100
--- NOTE | 2022-11-01 14:18 | ED.UPPEXIN ---
HPI - Extremity Injury (Upper) General Chief Complaint: Extremity Injury, Upper Stated Complaint: KNOT ON FINGER/PAIN UP INTO L SHOULDER Time Seen by Provider: 11/01/22 14:18 Source: patient Mode of arrival: ambulatory Limitations: no limitations History of Present Illness HPI narrative: Patient is a 27-year-old female who presents with left hand pain that she describes as sharp shooting radiating up to shoulder. Patient states that it has been present for 3-4 days. Patient has not taken anything for pain. Patient states she used ice but it was too cold. Patient denies any injury to hand. Patient denies any numbness, tingling, weakness to hand. Patient denies any increased pain with movement, just reports pain as constant. States at times it looks slightly more swollen. Related Data Home Medications Medication Instructions Recorded Confirmed ethosuximide 250 mg capsule 250 mg PO BID 04/29/19 11/01/22 methsuximide 300 mg capsule 300 mg PO TID 04/29/19 11/01/22 (Celontin) sumatriptan succinate 50 mg tablet 50 mg PO USEASDIRECTD PRN headache 04/29/19 11/01/22 ergocalciferol (vitamin D2) 1,250 1,250 mcg PO WEEKLY 08/30/19 11/01/22 mcg (50,000 unit) capsule (Vitamin D2) folic acid 1 mg tablet 1 mg PO DAILY 02/13/22 11/01/22 norgestimate 0.25 mg-ethinyl 1 tablet PO DAILY 02/13/22 11/01/22 estradiol 35 mcg tablet (Estarylla) rimegepant 75 mg disintegrating 75 mg PO DAILY 02/13/22 11/01/22 tablet (Nurtec ODT) escitalopram oxalate 5 mg tablet 10 mg PO DAILY 11/01/22 11/01/22 Allergies Allergy/AdvReac Type Severity Reaction Status Date / Time latex Allergy Rash Verified 11/01/22 14:19 Review of Systems Review of Systems: All systems reviewed & are unremarkable except as noted in HPI and below Constitutional: Constitutional: Denies body ache(s), Denies chills, Denies fatigue, Denies fever(s), Denies headache(s), Denies malaise and Denies weakness Eyes: Eyes: Denies blurry vision, Denies irritation and Denies loss of vision ENT: Denies otalgia, Denies headache(s), Denies nasal discharge, Denies sinus pain and Denies sore throat Cardiovascular: Cardiovascular: Denies chest pain, Denies irregular heart rhythm and Denies dyspnea Respiratory: Respiratory: Denies dyspnea Gastrointestinal: Gastrointestinal: Denies abdominal pain, Denies melena, Denies hematochezia, Denies diarrhea, Denies nausea and Denies vomiting Musculoskeletal: Musculoskeletal: Denies back pain, Denies myalgias and Reports arthralgias Integumentary/Breasts: Skin/Breast: Denies pruritus and Denies rash Neurologic: Denies headache(s), Denies loss of vision and Denies weakness Psychiatric: Psychiatric: Reports no additional psychiatric complaints Endocrine: Endocrine: Denies fatigue PMFSH Past Medical History Medical History Anxiety Asthma Chronic sinusitis Depression Hx of migraines Learning disabilities Psoriasis Right arm fracture Seizures Surgical History Surgical History History of facial surgery plastic surgery to chin Family History Family History Father Seizures Mother Alive and well Sibling Seizures Asthma Grandparent Asthma Social History Social History (Updated 10/10/22 @ 14:06 by Tasha Causey CMA) Social History: Caffeine- occasionally Smoking status: Never smoker Second hand tobacco smoke exposure: No Alcohol intake: never Substance use: never Lack of Transportation: No Lack of Food: Never True Current Housing: I Have Housing Concerned About Future Housing: No Difficulty Paying Gas/Electric Bills: No Difficulty Paying for Meds: No Currently Unemployed: No Education: High School Diploma/GED Difficulty w/ Childcare or Family Care: No Living arrangements: with family Occupation/Education: oc
== END 2022-11-01 15:27 | disposition home or self-care (01) ==
PROVIDERS: Emergency Provider Nurse Practitioner Family; PCP Emergency Medicine
DX: M54.12 Radiculopathy, cervical region (principal); F41.9 Anxiety disorder, unspecified; J45.909 Unspecified asthma, uncomplicated; F32.A Depression, unspecified; L40.9 Psoriasis, unspecified; G40.909 Epilepsy, unspecified, not intractable, without status epilepticus
CPT/HCPCS: 73130; 99213; G0463

== ENCOUNTER 2022-11-18 15:22 | Emergency (ER) | payer BC, MEDICAID, SELFPAY ==
[2022-11-18 15:34] VITALS: BP 135/96; PULSE 70; RESP 16; TEMP 35.9; O2SAT 99
--- NOTE | 2022-11-18 15:39 | ED.GENADULT ---
HPI - General Adult General Chief complaint: Upper Respiratory Infection Stated complaint: Allergic reaction to nasal sprays Time Seen by Provider: 11/18/22 15:39 Source: patient, RN notes reviewed and old records reviewed Mode of arrival: ambulatory Limitations: no limitations History of Present Illness HPI narrative: 27 year old female accompanied by mother presents to express care with complaints of nasal pain, sinus congestion of yellow drainage, headache pain. Mother reports that daughter had been prescribed new nasal spray to take along with her Flonase of Azelastine and she has been using them since the and now is having alot of pain and irritation to her nasal area, reports that she stopped them last night. Mother reports that they did a tele doc visit and was told she may be having allergic reaction to nasal sprays. Mother reports she called ENT office and had been waiting to hear back from them all day. Mother reports that ENT planning on doing surgery soon for septal deviation and sinus tissue abnormality. MD complaint: nasal pain, headache, nasal congestion Onset (ago): day(s) (2) Location: head (frontal head) and face (nasal) Severity scale (1-10): 10 Treatments prior to arrival: none Related Data Home Medications Medication Instructions Recorded Confirmed ethosuximide 250 mg capsule 250 mg PO BID 04/29/19 11/18/22 methsuximide 300 mg capsule 300 mg PO TID 04/29/19 11/18/22 (Celontin) sumatriptan succinate 50 mg tablet 50 mg PO USEASDIRECTD PRN headache 04/29/19 11/18/22 ergocalciferol (vitamin D2) 1,250 1,250 mcg PO WEEKLY 08/30/19 11/18/22 mcg (50,000 unit) capsule (Vitamin D2) norgestimate 0.25 mg-ethinyl 1 tablet PO DAILY 02/13/22 11/18/22 estradiol 35 mcg tablet (Estarylla) rimegepant 75 mg disintegrating 75 mg PO DAILY 02/13/22 11/18/22 tablet (Nurtec ODT) ferrous sulfate 325 mg (65 mg 325 mg PO DAILY 11/18/22 11/18/22 iron) tablet (FeroSul) Allergies Allergy/AdvReac Type Severity Reaction Status Date / Time latex Allergy Rash Verified 11/18/22 15:30 Review of Systems Review of Systems: CONSTITUTIONAL: Denies malaise, chills, sweats, or fever. EYES: Denies visual changes, redness, or discharge. ENT: Reports rhinorrhea, congestion, sinus pain,nasal pain inside of nose,no otalgia and no sore throat. CARDIOVASCULAR: Denies chest pain, palpitations, or edema. RESPIRATORY: Reports cough.? Denies dyspnea. GASTROINTESTINAL: Denies abdominal pain, nausea, vomiting, diarrhea SKIN: Denies rash or itching. MUSCULOSKELETAL: Denies myalgia. NEUROLOGIC:Reports headache., does have history of migraines. All systems reviewed & are unremarkable except as noted in HPI and below PMFSH Past Medical History Medical History Anxiety Asthma Chronic sinusitis Depression Hx of migraines Learning disabilities Psoriasis Right arm fracture Seizures Surgical History Surgical History History of facial surgery plastic surgery to chin Family History Family History Father Seizures Mother Alive and well Sibling Seizures Asthma Grandparent Asthma Social History Social History Social History: Caffeine- occasionally Smoking status: Never smoker Second hand tobacco smoke exposure: No Alcohol intake: never Substance use: never Lack of Transportation: No Lack of Food: Never True Current Housing: I Have Housing Concerned About Future Housing: No Difficulty Paying Gas/Electric Bills: No Difficulty Paying for Meds: No Currently Unemployed: No Education: High School Diploma/GED Difficulty w/ Childcare or Family Care: No Living arrangements: with family Occupation/Education: occupation Additional occupation/education comments: D
== END 2022-11-18 16:05 | disposition home or self-care (01) ==
PROVIDERS: Emergency Provider Registered Nurse; PCP Emergency Medicine
DX: J34.89 Other specified disorders of nose and nasal sinuses (principal); J45.909 Unspecified asthma, uncomplicated; L40.9 Psoriasis, unspecified; G40.909 Epilepsy, unspecified, not intractable, without status epilepticus
CPT/HCPCS: 99213; G0463

== ENCOUNTER 2023-01-18 08:06 | Outpatient (CLI) | payer BC, MEDICAID, SELFPAY ==
--- NOTE | ~2023-01-18 | CT_ITS ---
EXAMINATION: CT sinus wo con DATE: 01/18/2023 08:23 INDICATION: TECHNIQUE: Computed tomography (CT) of the paranasal sinuses was performed without intravenous contra st. The dose-length product (DLP) was 309.35 mGy-cm. Iterative reconstruction was used. COMPARISON: None FINDINGS: There is normal development and pneumatization of the paranasal sinuses. Mild mucosal thick ening in the ethmoid air cells, bilateral maxillary, and sphenoid sinuses. Small retention cyst or po lyp in the posterior aspect of the left sphenoid sinus. The bilateral ostiomeatal complexes are paten t. Visualized soft tissues are unremarkable. IMPRESSION: Mild mucoperiosteal sinus disease. Reviewed, dictated and finalized at location K.
== END 2023-01-18 08:07 | disposition home or self-care (01) ==
LOC: ANHIMG 08:08
PROVIDERS: PCP Emergency Medicine; Visit Provider Otolaryngology
DX: J32.9 Chronic sinusitis, unspecified (principal)
CPT/HCPCS: 70486

== ENCOUNTER 2023-06-05 08:00 | Emergency (ER) | payer BC, MEDICAID, SELFPAY ==
--- NOTE | 2023-06-05 08:08 | ED.GENADULT ---
HPI - General Adult General Chief complaint: Upper Respiratory Infection Stated complaint: COUGH/CHEST Source: patient, RN notes reviewed and old records reviewed Mode of arrival: ambulatory Limitations: no limitations History of Present Illness HPI narrative: 28-year-old female presents to [facility] with complaints of cough, congestion, sinus pain, headache this started 1 week ago. Patient taking [id number] sinus medicines with no relief. Patient denies chest pain, shortness of breath, dizziness, weakness. Related Data Home Medications Medication Instructions Recorded Confirmed ethosuximide 250 mg capsule 250 mg PO BID 04/29/19 06/05/23 methsuximide 300 mg capsule 300 mg PO TID 04/29/19 06/05/23 (Celontin) ergocalciferol (vitamin D2) 1,250 1,250 mcg PO WEEKLY 08/30/19 06/05/23 mcg (50,000 unit) capsule (Vitamin D2) norgestimate 0.25 mg-ethinyl 1 tablet PO DAILY 02/13/22 06/05/23 estradiol 35 mcg tablet (Estarylla) rimegepant 75 mg disintegrating 75 mg PO DAILY PRN Migraine 02/13/22 06/05/23 tablet (Nurtec ODT) Headache ferrous sulfate 325 mg (65 mg 325 mg PO DAILY 11/18/22 06/05/23 iron) tablet (FeroSul) escitalopram oxalate 5 mg tablet 5 mg PO QPM 01/16/23 06/05/23 folic acid 1 mg tablet 1 mg PO DAILY 01/16/23 06/05/23 Allergies Allergy/AdvReac Type Severity Reaction Status Date / Time latex Allergy Rash Verified 01/16/23 12:58 Review of Systems Constitutional: Constitutional: Reports no additional constitutional complaints, Denies body ache(s), Denies chills, Denies fatigue, Denies fever(s) and Reports headache(s) Eyes: Eyes: Reports no additional eye complaints and Denies blurry vision ENT: Reports system reviewed and no additional complaints, except as documented, Denies vertigo, Denies dizziness, Denies ear discharge, Denies otalgia, Denies facial pain, Reports headache(s), Reports nasal congestion, Denies nasal discharge, Reports sinus pain, Reports sinus pressure and Denies sore throat Cardiovascular: Cardiovascular: Reports no additional cardiovascular complaints, Denies chest pain, Denies chest pain at rest, Denies rapid heart rate and Denies dyspnea Respiratory: Respiratory: Reports no additional respiratory complaints, Reports chest congestion, Reports cough, Denies pain on inspiration, Denies pain with cough and Denies dyspnea Gastrointestinal: Gastrointestinal: Denies abdominal pain, Denies diarrhea, Denies nausea and Denies vomiting Integumentary/Breasts: Skin/Breast: Denies rash Neurologic: Reports system reviewed and no additional complaints, except as documented, Denies vertigo, Denies dizziness and Reports headache(s) Endocrine: Endocrine: Denies fatigue [facility] Past Medical History Medical History Anxiety Asthma Chronic sinusitis Depression Hx of migraines Learning disabilities Psoriasis Right arm fracture Seizures Surgical History Surgical History History of facial surgery plastic surgery to chin Family History Family History Father Seizures Mother Alive and well Sibling Seizures Asthma Grandparent Asthma Social History Social History Social History: Caffeine- occasionally Smoking status: Never smoker Second hand tobacco smoke exposure: No Alcohol intake: never Substance use: never Lack of Transportation: No Lack of Food: Never True Current Housing: I Have Housing Concerned About Future Housing: No Difficulty Paying Gas/Electric Bills: No Difficulty Paying for Meds: No Currently Unemployed: No Education: High School Diploma/GED Difficulty w/ Childcare or Family Care: No Living arrangements: with family Occupation/Education: occupation Additional occupation/education comments: Disable Ge
[2023-06-05 08:16] VITALS: BP 116/88; PULSE 88; RESP 16; TEMP 36.5; O2SAT 99
== END 2023-06-05 08:26 | disposition home or self-care (01) ==
PROVIDERS: Emergency Provider Registered Nurse; PCP Emergency Medicine
DX: J01.90 Acute sinusitis, unspecified (principal); G40.909 Epilepsy, unspecified, not intractable, without status epilepticus; J45.909 Unspecified asthma, uncomplicated; L40.9 Psoriasis, unspecified; F41.9 Anxiety disorder, unspecified; F32.A Depression, unspecified
CPT/HCPCS: 99213; G0463

== ENCOUNTER 2023-07-04 10:55 | Emergency (ER) | payer BC, MEDICAID, SELFPAY ==
--- NOTE | ~2023-07-04 | XR_ITS ---
EXAMINATION: XR ankle LT min 3V DATE: 07/04/2023 11:28 INDICATION: Left ankle pain. Fall. TECHNIQUE: 4 views of left ankle were obtained. COMPARISON: None. FINDINGS: Bone alignment is normal. No fracture. There is mild midfoot osteoarthritis. IMPRESSION: 1. Mild midfoot osteoarthritis. Reviewed, dictated and finalized at location A.
--- NOTE | ~2023-07-04 | XR_ITS ---
EXAMINATION: XR foot LT min 3V DATE: 07/04/2023 11:27 INDICATION: Left foot injury and pain. TECHNIQUE: 4 views of left foot were obtained. COMPARISON: Left foot radiographs 08/16/2020 FINDINGS: Bone alignment is normal. No fracture. Joint spaces are normal. IMPRESSION: 1. No fracture. Reviewed, dictated and finalized at location A. IMPRESSION: 1. No fracture.
[2023-07-04 11:17] VITALS: BP 125/82; PULSE 89; RESP 20; TEMP 36.4; O2SAT 100
--- NOTE | 2023-07-04 11:44 | ED.LOWEXIN ---
HPI - Extremity Injury (Lower) General Chief Complaint: Extremity Injury, Lower Stated Complaint: Fall Injury, Left Foot,Knee and Leg Pain Time Seen by Provider: 07/04/23 11:30 Source: patient, family (Mother) and RN notes reviewed Mode of arrival: ambulatory Limitations: no limitations History of Present Illness HPI Narrative: Patient presents today complaining of a left foot and ankle pain. States she fell in a hole 2 days ago rolling her ankle. She does report some tingling in her ankle and lower leg. Currently rates her pain 10/10 and has been taking Tylenol and Aleve without much relief. Pain increases with movement and weight-bearing. Related Data Home Medications Medication Instructions Recorded Confirmed ethosuximide 250 mg capsule 250 mg PO BID 04/29/19 07/04/23 methsuximide 300 mg capsule 300 mg PO TID 04/29/19 07/04/23 (Celontin) ergocalciferol (vitamin D2) 1,250 1,250 mcg PO WEEKLY 08/30/19 07/04/23 mcg (50,000 unit) capsule (Vitamin D2) norgestimate 0.25 mg-ethinyl 1 tablet PO DAILY 02/13/22 07/04/23 estradiol 35 mcg tablet (Estarylla) rimegepant 75 mg disintegrating 75 mg PO DAILY PRN Migraine 02/13/22 07/04/23 tablet (Nurtec ODT) Headache folic acid 20 mg capsule 20 mg PO DAILY 06/25/23 07/04/23 ubrogepant 100 mg tablet (Ubrelvy) 100 mg PO ONCE 06/25/23 07/04/23 Allergies Allergy/AdvReac Type Severity Reaction Status Date / Time latex Allergy Rash Verified 07/04/23 11:12 Review of Systems Review of Systems: CONSTITUTIONAL: Denies body aches, fever, chills, or sweats. EYES: Denies visual changes, redness, or discharge. ENT: Denies rhinorrhea, congestion, sore throat, or otalgia. CARDIOVASCULAR: Denies chest pain, palpitations, or edema. RESPIRATORY: Denies cough or dyspnea. GASTROINTESTINAL: Denies abdominal pain, nausea, vomiting, or diarrhea. GENITOURINARY: Denies dysuria or hematuria. SKIN: Denies rash, itching, or wounds. MUSCULOSKELETAL: Denies back pain, or myalgia.+ left foot and ankle pain NEUROLOGIC: Denies headache, numbness, or weakness.+ tingling of left leg and foot PSYCH: Denies depression or anxiety. [facility] Past Medical History Medical History Anxiety Asthma Chronic sinusitis Depression Hx of migraines Learning disabilities Psoriasis Right arm fracture Seizures Surgical History Surgical History History of facial surgery plastic surgery to chin Family History Family History Father Seizures Mother Alive and well Sibling Seizures Asthma Grandparent Asthma Social History Social History Social History: Caffeine- occasionally Smoking status: Never smoker Second hand tobacco smoke exposure: No Alcohol intake: never Substance use: never Substance use type: does not use Do You Feel Safe in your Home?: Yes Lack of Transportation: No Lack of Food: Never True Current Housing: I Have Housing Concerned About Future Housing: No Difficulty Paying Gas/Electric Bills: No Difficulty Paying for Meds: No Currently Unemployed: No Education: High School Diploma/GED Difficulty w/ Childcare or Family Care: No Living arrangements: with family Occupation/Education: occupation Additional occupation/education comments: Disable Gender identity (if verbalized by the patient): Female Sexual Orientation (if Verbalized by the Patient): unknown Spiritual care concerns: No Agree to blood products: Yes Comments At time of signature, I have reviewed and agree with nursing past medical, surgical, social and family history unless otherwise noted. Please see nursing chart for further information. There is no relevant family history pertinent to the presenting complaint Exam Narrative:
== END 2023-07-04 12:09 | disposition home or self-care (01) ==
PROVIDERS: Emergency Provider Nurse Practitioner; PCP Emergency Medicine
DX: S93.402A Sprain of unspecified ligament of left ankle, initial encounter (principal); X50.0XXA Overexertion from strenuous movement or load, initial encounter; Z79.899 Other long term (current) drug therapy
CPT/HCPCS: 73610; 73630; 99213; G0463

== ENCOUNTER 2024-01-03 19:17 | Emergency (ER) | payer BC, MEDICAID, SELFPAY ==
--- NOTE | ~2024-01-03 | XR_ITS ---
XR chest 2V Ordering provider: GALEN Alfred History: 28 years Female with . ant chest discomfort. COVID 3 weeks ago . Comparison: September 04, 2022 FINDINGS: MEDIASTINUM: The cardiac silhouette is not enlarged. LUNGS: No infiltrates, effusions or pneumothorax. OTHER: No free air under the diaphragm. IMPRESSION: No acute cardiopulmonary pathology. Reviewed, dictated and finalized at location A.
[2024-01-03 19:22] VITALS: BP 127/80; PULSE 91; RESP 16; TEMP 36.3; O2SAT 99
[2024-01-03 19:29] VITALS: BP 127/80; PULSE 91; RESP 16; TEMP 36.3; O2SAT 99
--- NOTE | 2024-01-03 19:36 | ED.GENADULT ---
HPI - General Adult General Chief complaint: Chest Pain Stated complaint: CHEST PAIN Time Seen by Provider: 01/03/24 19:24 Source: patient, family (mother) and RN notes reviewed Mode of arrival: ambulatory Limitations: no limitations History of Present Illness HPI narrative: Mother presents patient today complaining of sternal chest discomfort that started 3 days ago and has stayed fairly constant. Pain increases with movement and exertion. Patient has not tried any [id number] treatment prior to arrival. Patient, mother, and father all had COVID-19 3 weeks ago. States her cough has improved. Related Data Home Medications Medication Instructions Recorded Confirmed ethosuximide 250 mg capsule 250 mg PO BID 04/29/19 07/04/23 methsuximide 300 mg capsule 300 mg PO TID 04/29/19 07/04/23 (Celontin) norgestimate 0.25 mg-ethinyl 1 tablet PO DAILY 02/13/22 07/04/23 estradiol 35 mcg tablet (Estarylla) rimegepant 75 mg disintegrating 75 mg PO DAILY PRN Migraine 02/13/22 07/04/23 tablet (Nurtec ODT) Headache ubrogepant 100 mg tablet (Ubrelvy) 100 mg PO ONCE 06/25/23 07/04/23 folic acid 1 mg tablet 1 mg PO DAILY 01/03/24 01/03/24 Allergies Allergy/AdvReac Type Severity Reaction Status Date / Time latex Allergy Rash Verified 01/03/24 19:20 Review of Systems Review of Systems: CONSTITUTIONAL: Denies body aches, fever, chills, or sweats. EYES: Denies visual changes, redness, or discharge. ENT: Denies rhinorrhea, congestion, sore throat, or otalgia. CARDIOVASCULAR: Denies palpitations, or edema.+chest discomfort RESPIRATORY: Denies cough or dyspnea. GASTROINTESTINAL: Denies abdominal pain, nausea, vomiting, or diarrhea. GENITOURINARY: Denies dysuria or hematuria. SKIN: Denies rash, itching, or wounds. MUSCULOSKELETAL: Denies back pain, joint pain, or myalgia. NEUROLOGIC: Denies headache, numbness, tingling, or weakness. PSYCH: Denies depression or anxiety. [facility] Past Medical History Medical History Anxiety Asthma Chronic sinusitis Depression Hx of migraines Learning disabilities Psoriasis Right arm fracture Seizures Surgical History Surgical History History of facial surgery plastic surgery to chin Family History Family History Father Seizures Mother Alive and well Sibling Seizures Asthma Grandparent Asthma Social History Social History Social History: Caffeine- occasionally Smoking status: Never smoker Second hand tobacco smoke exposure: No Alcohol intake: never Substance use: never Substance use type: does not use Do You Feel Safe in your Home?: Yes Lack of Transportation: No Lack of Food: Never True Current Housing: I Have Housing Concerned About Future Housing: No Difficulty Paying Gas/Electric Bills: No Difficulty Paying for Meds: No Currently Unemployed: No Education: High School Diploma/GED Difficulty w/ Childcare or Family Care: No Living arrangements: with family Occupation/Education: occupation Additional occupation/education comments: Disable Gender identity (if verbalized by the patient): Female Sexual Orientation (if Verbalized by the Patient): unknown Spiritual care concerns: No Agree to blood products: Yes Comments At time of signature, I have reviewed and agree with nursing past medical, surgical, social and family history unless otherwise noted. Please see nursing chart for further information. There is no relevant family history pertinent to the presenting complaint Exam Narrative: GENERAL: Well-appearing, well-nourished, and in no acute distress. HEAD: Normocephalic, atraumatic. EYES: EOMI. No redness or drainage. Conjunctivae normal. ENT: Mucous membranes pink and m
== END 2024-01-03 20:15 | disposition home or self-care (01) ==
PROVIDERS: Emergency Provider Nurse Practitioner; PCP Emergency Medicine
DX: M94.0 Chondrocostal junction syndrome [Tietze] (principal); J45.909 Unspecified asthma, uncomplicated; L40.9 Psoriasis, unspecified; G40.909 Epilepsy, unspecified, not intractable, without status epilepticus
CPT/HCPCS: 71046; 99213; G0463

== ENCOUNTER 2024-04-22 12:12 | Emergency (ER) | payer BC, MEDICAID, SELFPAY ==
--- NOTE | ~2024-04-22 | XR_ITS ---
EXAMINATION: XR ankle LT min 3V DATE: 04/22/2024 12:45 INDICATION: Left ankle injury and pain. TECHNIQUE: 4 views of left ankle were obtained. COMPARISON: None. FINDINGS: Alignment is normal. No fracture. There is mild osteoarthritis of talonavicular joint. IMPRESSION: 1. Mild osteoarthritis of talonavicular joint. Reviewed, dictated and finalized at location A. [employer]
--- NOTE | ~2024-04-22 | XR_ITS ---
EXAMINATION: XR foot LT min 3V DATE: 04/22/2024 12:46 INDICATION: Lateral left foot pain. TECHNIQUE: 4 views of left foot were obtained. COMPARISON: None. FINDINGS: Alignment is normal. No fracture. There is mild osteoarthritis of talonavicular joint. IMPRESSION: 1. Mild osteoarthritis of talonavicular joint. Reviewed, dictated and finalized at location A. AGE TESTER
[2024-04-22 12:29] VITALS: BP 125/89; PULSE 88; RESP 16; TEMP 36.1; O2SAT 100
--- NOTE | 2024-04-22 12:56 | ED.LOWEXIN ---
HPI - Extremity Injury (Lower) General Chief Complaint: Extremity Injury, Lower Stated Complaint: hurt foot/ankle Source: patient Mode of arrival: ambulatory Limitations: no limitations History of Present Illness HPI Narrative: 29 y/o female presented for c/o left foot pain for over 1 week. States she dropped a large landscaping rock on the foot. Has taken occasional Aleve without improvement. Has been able to walk without difficulty. Denies swelling, bruising or deformity. Related Data Home Medications ?Medication ?Instructions ?Recorded ?Confirmed ?Last Taken ?Type ethosuximide 250 mg capsule 250 mg PO BID 04/29/19 07/04/23 01/20/20 History norgestimate 0.25 mg-ethinyl 1 tablet PO DAILY 02/13/22 07/04/23 Unknown History estradiol 35 mcg tablet (Estarylla) folic acid 1 mg tablet 1 mg PO DAILY 01/03/24 01/03/24 Unknown History methsuximide 300 mg capsule 300 mg PO TID 02/12/24 Unknown History (Celontin) Allergies Allergy/AdvReac Type Severity Reaction Status Date / Time latex Allergy Rash Verified 01/03/24 19:20 Review of Systems Review of Systems: CONSTITUTIONAL: Denies body aches, fever, chills EYES: Denies visual changes ENT: Reports left ear pain Denies rhinorrhea, congestion CARDIOVASCULAR: Denies chest pain, palpitations, or edema. RESPIRATORY: Denies cough or dyspnea. GASTROINTESTINAL: Denies abdominal pain, nausea, vomiting, or diarrhea. SKIN: Denies wounds. MUSCULOSKELETAL: Reports left foot pain NEUROLOGIC: Denies headache, numbness, tingling, or weakness. All systems reviewed & are unremarkable except as noted in HPI and below PMFSH Past Medical History Medical History Chronic sinusitis Psoriasis Right arm fracture Asthma Seizures Learning disabilities Anxiety Depression Hx of migraines Surgical History Surgical History History of facial surgery plastic surgery to chin Family History Family History Father Seizures Mother Alive and well Sibling Seizures Asthma Grandparent Asthma Social History Social History Social History: Caffeine- occasionally Smoking status: Never smoker Second hand tobacco smoke exposure: No Alcohol intake: never Substance use: never Substance use type: does not use Do You Feel Safe in your Home?: Yes Lack of Transportation: No Lack of Food: Never True Current Housing: I Have Housing Concerned About Future Housing: No Difficulty Paying Gas/Electric Bills: No Difficulty Paying for Meds: No Currently Unemployed: No Education: High School Diploma/GED Difficulty w/ Childcare or Family Care: No Living arrangements: with family Occupation/Education: occupation Additional occupation/education comments: Disable Gender identity (if verbalized by the patient): Female Sexual Orientation (if Verbalized by the Patient): unknown Spiritual care concerns: No Agree to blood products: Yes Comments At time of signature, I have reviewed and agree with nursing past medical, surgical, social and family history unless otherwise noted. Please see nursing chart for further information. There is no relevant family history pertinent to the presenting complaint Exam Narrative: GENERAL: Well-appearing EENT: PERRLA, conjunctivae clear; nares clear. Pharynx normal. Bilateral TMs normal. CHEST: Speaks in full sentences. No respiratory distress. HEART: Regular rate and rhythm. Normal and equal peripheral pulses. EXTREMITIES: Left foot has normal strength and sensation, normal range of motion endorses pain with movement. No swelling or ecchymosis, No point tenderness. No open wounds, or obvious deformity; alignment normal, pulse palpable and equal bilaterally, skin warm, dry, pink. Capillary refill less than 3 seconds. SKIN: Warm, dry NEURO: Alert and oriented x3. PSYCH: Normal mood and affect Course Course Emergency Course: Patient is aware of diagnosis, understands and agrees to treatment plan. Anticipatory guidance given. Patient agrees to follow-up as directed and is aware of reasons to seek care at the emergency department. Portions of this record may have been created with voice recognition software Level of Care: Express Care Visit Vital Signs Vital signs: Vital Signs Temperature 96.9 F L 04/22/24 12:29 Pulse Rate 88 04/22/24 12:29 Respiratory Rate 16 04/22/24 12:29 Blood Pressure 125/89 04/22/24 12:29 Pulse Oximetry 100 04/22/24 12:29 Temperature 96.9 F L 04/22/24 12:29 Pulse Rate 88 04/22/24 12:29 Respiratory Rate 16 04/22/24 12:29 Blood Pressure 125/89 04/22/24 12:29 Pulse Oximetry 100 04/22/24 12:29 Reviewed MDM - Extremity Injury (Lower) MDM Narrative Medical decision making narrative: Discussed physical exam findings and xray reviewed with pt. KELBY applied to left foot. Advised supportive measures and signs/symptoms to go to the ER. Pt is appropriate for outpt treatment and f/u. Imaging Data Radiologist's impression: Patient: Laquita Wells : 1995 MR#: [id number] Age: 29 Acct:[id number] Loc: [id number] ADM Date: 04/22/24Attending Dr: Ordering Physician: Yvonne Hatch APRN Date of Service: 04/22/24 Procedure(s): XR foot LT min 3V Accession Number(s): [id number] cc: Asim Small MD; Yvonne Hatch APRN~ EXAMINATION: XR foot LT min 3V DATE: 04/22/2024 12:46 INDICATION: Lateral left foot pain. TECHNIQUE: 4 views of left foot were obtained. COMPARISON: None. FINDINGS: Alignment is normal. No fracture. There is mild osteoarthritis of talonavicular joint. IMPRESSION: 1. Mild osteoarthritis of talonavicular joint. Discharge Plan Discharge Clinical Impression: Contusion of foot, left, Otalgia of left ear Patient Disposition: Home, Self-Care Condition: Stable Instructions: Foot Contusion (ED) Additional Instructions: Foot pain: Rest and elevate the left leg; bear weight as tolerated Apply ice 15-20 minute intervals several times a day Keep it wrapped with KELBY or use a soft ankle splint Motrin 600mg -800mg every 8 hours, alternate with Tylenol 1000mg every 8 hours as needed Ear pain: Recommend antihistamine such as Benadryl, Zyrtec or Ella for sinus congestion Flonase nasal spray, 1 spray in each nostril once daily until symptoms improve Symptomatic treatment includes: rest, fluids, and increase humidity of the air at home. Tylenol and ibuprofen as above Follow up with your primary care provider as needed in 1 week Go to ER worsening symptoms or concerns Patient Language: [place]an Prescriptions: No Action ethosuximide 250 mg Capsule 250 mg PO BID Rx Instructions: takes one in morning and two at night folic acid 1 mg tablet 1 mg PO DAILY norgestimate-ethinyl estradiol [Estarylla] 0.25-35 mg-mcg tablet 1 tablet PO DAILY Qulipta 60 mg tablet 60 mg PO DAILY Qty: 90 0RF escitalopram oxalate 10 mg tablet 10 mg PO DAILY Qty: 30 0RF methsuximide [Celontin] 300 mg capsule 300 mg PO TID Rx Instructions: takes one in morning and two at night Follow-up/Referrals: Asim Small MD [Primary Care Provider] - Time of Disposition: 13:03
== END 2024-04-22 13:07 | disposition home or self-care (01) ==
PROVIDERS: Emergency Provider Nurse Practitioner Family; PCP Emergency Medicine
DX: S90.32XA Contusion of left foot, initial encounter (principal); W20.8XXA Other cause of strike by thrown, projected or falling object, initial encounter; H92.02 Otalgia, left ear; J45.909 Unspecified asthma, uncomplicated; L40.9 Psoriasis, unspecified; F81.9 Developmental disorder of scholastic skills, unspecified
CPT/HCPCS: 73610; 73630; 99213; G0463

== ENCOUNTER 2024-12-29 08:03 | Emergency (ER) | payer BC, MEDICAID, SELFPAY ==
--- NOTE | ~2024-12-29 | XR_ITS ---
EXAMINATION: XR foot LT min 3V, 12/29/2024 8:22 CDT HISTORY: injury walking dog 3 days ago on rocks, twisted foot COMPARISON: No comparisons available. Findings: No acute fracture or malalignment. No significant degenerative changes. Soft tissues unremarkable. Impression: No acute fracture or malalignment. Reviewed, dictated and finalized at location A. Impression: No acute fracture or malalignment.
--- NOTE | ~2024-12-29 | XR_ITS ---
EXAMINATION: XR ankle LT min 3V, 12/29/2024 8:22 CDT HISTORY: injury 3 days ago walking dog, twisted foot COMPARISON: No comparisons available. Findings: No acute fracture or malalignment. No significant degenerative changes. Soft tissues unremarkable. Impression: No acute fracture or malalignment. Reviewed, dictated and finalized at location A. Impression: No acute fracture or malalignment.
[2024-12-29 08:13] VITALS: BP 138/83; PULSE 92; RESP 16; TEMP 36.1; O2SAT 100
--- NOTE | 2024-12-29 08:13 | ED.LOWEXIN ---
HPI - Extremity Injury (Lower) General Chief Complaint: Extremity Injury, Lower Stated Complaint: L FOOT INJURY Time Seen by Provider: 12/29/24 08:17 Source: patient and RN notes reviewed Mode of arrival: ambulatory Limitations: no limitations History of Present Illness HPI Narrative: 29-year-old female presents with concern for left foot and ankle pain for 3 days. She reports she was playing with her dog on the driveway rocks when she tripped and started having pain. She reports pain at rest and pain with weight-bearing. MD complaint: foot injury Related Data Home Medications ?Medication ?Instructions ?Recorded ?Confirmed ?Last Taken ?Type ethosuximide 250 mg capsule 250 mg PO BID 04/29/19 07/04/23 01/20/20 History norgestimate 0.25 mg-ethinyl 1 tablet PO DAILY 02/13/22 07/04/23 Unknown History estradiol 0.035 mg tablet (Estarylla) folic acid 1 mg tablet 1 mg PO DAILY 01/03/24 01/03/24 Unknown History methsuximide 300 mg capsule 300 mg PO TID 02/12/24 Unknown History (Celontin) Allergies Allergy/AdvReac Type Severity Reaction Status Date / Time latex Allergy Rash Verified 12/29/24 08:28 Review of Systems Review of Systems: CONSTITUTIONAL: Denies malaise, chills, sweats, or fever. SKIN: Denies rash or itching, open skin, laceration, abrasion, redness, warmth, swelling. MUSCULOSKELETAL: Reports left foot and ankle pain NEUROLOGIC: Denies numbness, weakness All systems reviewed & are unremarkable except as noted in HPI and below PMFSH Past Medical History Medical History Chronic sinusitis Psoriasis Right arm fracture Asthma Seizures Learning disabilities Anxiety Depression Hx of migraines Surgical History Surgical History History of facial surgery plastic surgery to chin Family History Family History Father Seizures Mother Alive and well Sibling Seizures Asthma Grandparent Asthma Social History Social History Social History: Caffeine- occasionally Smoking status: Never smoker Second hand tobacco smoke exposure: No Alcohol intake: never Substance use: never Substance use type: does not use Do You Feel Safe in your Home?: Yes Lack of Transportation: No Lack of Food: Never True Current Housing: I Have Housing Concerned About Future Housing: No Difficulty Paying Gas/Electric Bills: No Difficulty Paying for Meds: No Currently Unemployed: No Education: High School Diploma/GED Difficulty w/ Childcare or Family Care: No Living arrangements: with family Occupation/Education: occupation Additional occupation/education comments: Disable Gender identity (if verbalized by the patient): Female Sexual Orientation (if Verbalized by the Patient): unknown Spiritual care concerns: No Agree to blood products: Yes Comments At time of signature, agree with nursing past medical, surgical, social and family history. There is no relevant family history pertinent to the presenting complaint Exam Narrative: GENERAL: Well-appearing, well-nourished, and in no acute distress. HEAD: Normocephalic, atraumatic. EYES: PERRLA, conjunctivae clear NECK: Supple. CHEST: Speaks in full sentences. No respiratory distress. HEART: Regular rate and rhythm. Normal and equal peripheral pulses. EXTREMITIES: Left foot, ankle, digits have grossly normal strength and sensation, grossly normal range of motion. No edema or ecchymosis. Normal sensation with sensitivity to light touch and pain. No point tenderness. No open wounds, no skin tenting, no devitalized tissue or atrophy, no trophic changes, no obvious deformity, alignment normal, nearby joints and structures intact. Distal pulses palpable and equal bilaterally, skin warm, dry, pink. Capillary refill less than 3 seconds. SKIN: Warm, dry, no rash. NEURO: Alert and oriented x3. PSYCH: Normal mood and affect Course Course Emergency Course: Patient is aware of diagnosis, understands and agrees to treatment plan. Anticipatory guidance given. Patient agrees to follow-up as directed and is aware of reasons to seek care at the emergency department. Portions of this record may have been created with voice recognition software Level of Care: Express Care Visit Vital Signs Vital signs: Reviewed. MDM - Extremity Injury (Lower) MDM Narrative Medical decision making narrative: The patient was evaluated by myself in the express care. History is obtained from patient who is an independent historian and physical exam was performed.? Available medical records were reviewed at this time. ? Exam findings show no acute concerns or changes; patient is non-toxic appearing and is in no distress. Patient is appropriate for outpatient treatment and follow-up. ? I have evaluated and discussed social determinants of health with the patient that could potentially impact subsequent diagnosis and treatment plans. ? Patients injury and pain is consistent with musculoskeletal etiology. No signs of neurological or vascular compromise on exam. Compartments and tissues are soft without signs of compartment syndrome. Pain is felt appropriate for further evaluation on an outpatient basis. Imaging Data Radiologist's impression: EXAMINATION: XR foot LT min 3V, 12/29/2024 8:22 CDT HISTORY: injury walking dog 3 days ago on rocks, twisted foot COMPARISON: No comparisons available. Findings: No acute fracture or malalignment. No significant degenerative changes. Soft tissues unremarkable. Impression: No acute fracture or malalignment. EXAMINATION: XR ankle LT min 3V, 12/29/2024 8:22 CDT HISTORY: injury 3 days ago walking dog, twisted foot COMPARISON: No comparisons available. Findings: No acute fracture or malalignment. No significant degenerative changes. Soft tissues unremarkable. Impression: No acute fracture or malalignment. Critical Care Time Critical Care Time Critical Care Time: No Discharge Plan Discharge Clinical Impression: Ankle sprain Patient Disposition: Home Condition: Stable Instructions: Ankle Sprain (ED) Additional Instructions: Avoid activities that cause pain until the pain subsides. Ice to the area 20-30 minutes 4-6 times a day Elevate above heart Elastic wrap as directed for comfort for the next 5-7 days Tylenol for lesser pain Ibuprofen regularly for the next 2-3 days for the inflammation Follow up with your primary care provider if the condition is not improving within 1 week. If the condition worsens with numbness, tingling, decrease sensation with weakness seek treatment in the emergency room immediately. Patient Language: Setswana Prescriptions: No Action ethosuximide 250 mg Capsule 250 mg PO BID Rx Instructions: takes one in morning and two at night folic acid 1 mg tablet 1 mg PO DAILY norgestimate-ethinyl estradiol [Estarylla] 0.25-35 mg-mcg tablet 1 tablet PO DAILY Qulipta 60 mg tablet 60 mg PO DAILY Qty: 90 0RF escitalopram oxalate 10 mg tablet 10 mg PO DAILY Qty: 30 0RF methsuximide [Celontin] 300 mg capsule 300 mg PO TID Rx Instructions: takes one in morning and two at night Follow-up/Referrals: Asim Small MD [Primary Care Provider, Family Practice] Time of Disposition: 09:18
== END 2024-12-29 09:20 | disposition home or self-care (01) ==
PROVIDERS: Emergency Provider Nurse Practitioner; PCP Emergency Medicine
DX: S93.402A Sprain of unspecified ligament of left ankle, initial encounter (principal); W18.40XA Slipping, tripping and stumbling without falling, unspecified, initial encounter
CPT/HCPCS: 73610; 73630; 99213; G0463

== ENCOUNTER 2025-01-05 15:56 | Outpatient (CLI) | payer BC, MEDICAID, SELFPAY ==
--- NOTE | ~2025-01-05 | XR_ITS ---
EXAMINATION: XR ankle LT 2V, 01/05/2025 16:10 CDT HISTORY: PAIN IN LEFT FOOT/ANKLE x 1 week, chasing dog on rocks COMPARISON: No comparisons available. Findings: No acute fracture or malalignment. No significant degenerative changes. Soft tissues unremarkable. Impression: No acute fracture or malalignment. Reviewed, dictated and finalized at location A. Impression: No acute fracture or malalignment.
--- NOTE | ~2025-01-05 | XR_ITS ---
EXAMINATION: XR foot LT min 3V, 01/05/2025 16:10 CDT HISTORY: PAIN IN LEFT FOOT/ANKLE, pain x 1 week, chasing dog on rocks COMPARISON: No comparisons available. Findings: No acute fracture or malalignment. No significant degenerative changes. Soft tissues unremarkable. Impression: No acute fracture or malalignment. Reviewed, dictated and finalized at location A. Impression: No acute fracture or malalignment.
== END 2025-01-05 15:57 | disposition home or self-care (01) ==
PROVIDERS: PCP Emergency Medicine; Visit Provider Emergency Medicine
DX: M25.572 Pain in left ankle and joints of left foot (principal)
CPT/HCPCS: 73600; 73630